=== PATIENT | male | born 1940 | race Asian ===

== ENCOUNTER 2017-04-21 09:30 | Inpatient (IN) | payer OTHER ==
[~2017-04-21] VITALS: Ht 172.7 cm; Wt 70.4 kg
[2017-04-21] MEDS ORDERED: FORTAMET1000 MG PO (10:07)
[2017-04-21] MEDS ORDERED: GLIPIZIDE ER10 M1 PO (10:07)
[2017-04-21] MEDS ORDERED: COZAAR100 MG PO (10:08)
[2017-04-21] MEDS ORDERED: ALLOPURINOL100 MG PO (10:08)
[2017-04-21 10:20] LABS: BASOPHIL % 0.4 % (0-2); CARBON DIOXIDE 25.5 mmol/L (21-32); CHLORIDE SERUM 103 mmol/L (98-107); CREATININE SERUM 1.7 mg/dL (0.7-1.3); GLUCOSE SERUM 260 mg/dL (74-106); PLATELET COUNT 223 x10^3mcL (130-400); SODIUM SERUM 135 mmol/L (136-145)
[2017-04-21 10:24] LABS: ALBUMIN 4.2 g/dL (3.4-5.0); ALKALINE PHOSPHATASE 60 U/L (46-116); ALT/SGPT 26 U/L (16-63); AST/SGOT 24 U/L (15-37); BILIRUBIN TOTAL 0.43 mg/dL (0.20-1.00)
[2017-04-21 10:25] LABS: TOTAL PROTEIN, SERUM 8.4 g/dL (6.4-8.2)
[2017-04-21 10:26] LABS: RED CELL DISTRIBUTION WIDTH 16.2 % (11.5-14.5)
[2017-04-21 12:48] VITALS: BP 137/56
[2017-04-21 13:11] VITALS: BP 137/56
[2017-04-21 13:14] VITALS: Ht 172.7 cm; Wt 70.4 kg
[2017-04-21 17:52] VITALS: BP 162/62
[2017-04-21 20:44] VITALS: BP 157/63
[2017-04-21 23:19] VITALS: BP 157/63
== END 2017-04-22 03:13 | disposition short-term general hospital (02) | DRG 281 ==
LOC: ED 09:30 → DU 12:02
PROVIDERS: ADMIT Internal Medicine Pulmonary Disease
DX: I21.4 Non-ST elevation (NSTEMI) myocardial infarction (principal); I16.1 Hypertensive emergency; E11.22 Type 2 diabetes mellitus with diabetic chronic kidney disease; N18.9 Chronic kidney disease, unspecified; Z79.84 Long term (current) use of oral hypoglycemic drugs; Z87.891 Personal history of nicotine dependence
CPT/HCPCS: 82962; 83880; J0132; J1644; J2270; J2405; J7042

== ENCOUNTER 2019-05-03 10:54 | Emergency (ER) | payer OTHER ==
[~2019-05-03] VITALS: Ht 172.7 cm; Wt 72.6 kg
[~2019-05-03 10:54] MED LIST: ALLOPURINOL100 MG PO; COZAAR100 MG PO; FORTAMET1000 MG PO; GLIPIZIDE ER10 M1 PO
[2019-05-03 10:57] VITALS: Ht 172.7 cm; Wt 72.6 kg
[2019-05-03 11:36] LABS: BASOPHIL % 0.4 % (0-2); PLATELET COUNT 228 x10^3mcL (130-400)
[2019-05-03 11:48] LABS: ALBUMIN 3.8 g/dL (3.4-5.0); ALKALINE PHOSPHATASE 62 U/L (46-116); ALT/SGPT 27 U/L (16-63); AST/SGOT 18 U/L (15-37); BILIRUBIN TOTAL 0.41 mg/dL (0.20-1.00); CALCIUM 8.9 mg/dL (8.5-10.1); CARBON DIOXIDE 23.6 mmol/L (21-32); CHLORIDE SERUM 108 mmol/L (98-107); CHOLESTEROL 162 mg/dL (<200); CHOLESTEROL/HDL RATIO 4.5; CREATININE SERUM 1.7 mg/dL (0.7-1.3); GLUCOSE SERUM 173 mg/dL (74-106); HDL CHOLESTEROL 36 mg/dL (40-60); SODIUM SERUM 140 mmol/L (136-145); TOTAL PROTEIN, SERUM 7.9 g/dL (6.4-8.2)
[2019-05-03 11:50] LABS: POTASSIUM SERUM 5.7 mmol/L (3.5-5.1); TRIGLYCERIDES 223 mg/dL (<150)
[2019-05-03 11:59] LABS: FREE T4 0.95 ng/dL (0.76-1.46); FREE THYROXINE INDEX 2.6 ug/dL (1.4-4.5); T4(THYROXINE) 7.2 ug/dL (4.7-13.3)
[2019-05-03 12:24] LABS: RED CELL DISTRIBUTION WIDTH 15.9 % (11.5-14.5)
[2019-05-03 14:22] LABS: T3 TOTAL 0.79 ng/mL
[2019-05-03 14:29] VITALS: BP 156/91
== END 2019-05-03 14:29 | disposition home or self-care (01) ==
LOC: ED 10:54
PROVIDERS: Emergency Medicine
DX: G62.9 Polyneuropathy, unspecified (principal); I10 Essential (primary) hypertension; E11.9 Type 2 diabetes mellitus without complications
CPT/HCPCS: 36415; 82962; 84439

== ENCOUNTER 2020-06-09 15:02 | Emergency (ER) | payer OTHER, SELFPAY ==
[~2020-06-09] VITALS: Ht 172.7 cm; Wt 70.3 kg
[2020-06-09 15:03] VITALS: Ht 172.7 cm; Wt 70.3 kg
[2020-06-09 17:58] VITALS: BP 134/75
== END 2020-06-09 17:58 | disposition home or self-care (01) ==
LOC: ED 15:02
DX: U07.1 COVID-19 (principal); J98.11 Atelectasis; E11.9 Type 2 diabetes mellitus without complications; I10 Essential (primary) hypertension; E78.00 Pure hypercholesterolemia, unspecified; E03.9 Hypothyroidism, unspecified; M10.9 Gout, unspecified
CPT/HCPCS: U0003